=== PATIENT | male | born 1990 | race African-American/Black ===

== ENCOUNTER 2020-05-15 02:00 | Emergency (ER) | payer MEDICAID ==
[~2020-05-15] VITALS: Ht 185.4 cm; Wt 95.0 kg
[2020-05-15] MEDS ORDERED: IBUPROFEN 600MG TABLET PO ONE (02:30)
[2020-05-15] MEDS ORDERED: LORAZEPAM 0.5MG TABLET PO ONE (02:30)
[2020-05-15 02:44] VITALS: BP 139/68
== END 2020-05-15 03:01 | disposition home or self-care (01) ==
LOC: ER 02:00
DX: F19.10 Other psychoactive substance abuse, uncomplicated (principal); Z20.2 Contact with and (suspected) exposure to infections with a predominantly sexual mode of transmission; J45.909 Unspecified asthma, uncomplicated
CPT/HCPCS: 99283